=== PATIENT | male | born 1955 | race Caucasian/White ===

== ENCOUNTER 2018-06-10 10:00 | Outpatient (CLI) | payer BC ==
--- NOTE | 2018-06-10 12:23 | RAD ---
5 VIEWS CERVICAL SPINE: Date: 06/10/18 COMPARISON: None. HISTORY: Cervical degenerative disc disease. FINDINGS: There is prominent bilateral severe facet and uncovertebral osteophyte formation, right greater than left, involving the cervical spine at the C3-4, C4-5, C5-6, and C6-7 levels. Open-mouth odontoid view demonstrates a normal appearing dens and C1-2 articulation. Neutral lateral examination demonstrates anterolisthesis at C3-4 measuring 5.0 mm, at C5-6 measuring 7.0 mm. There is prominent disc space narrowing and degenerative end plate change at C6-7. With flexi on imaging, the anterolisthesis at C3-4 measures approximately 7.0 mm, and at C5-6 measures approxima tely 7.0 mm. With extension, the anterolisthesis at C3-4 measures 4.0 mm, and the anterolisthesis at C5-6 measures 5.0 mm. No prevertebral soft tissue swelling. IMPRESSION: Multilevel prominent degenerative change seen within the cervical spine. Multilevel anterolisthesis n oted, most prominent upon flexion. POS: [id number]
== END 2018-06-10 10:01 | disposition home or self-care (01) ==
LOC: TBSIIMAG 10:00
PROVIDERS: ATTEND Surgery
DX: M47.22 Other spondylosis with radiculopathy, cervical region (principal); M50.10 Cervical disc disorder with radiculopathy, unspecified cervical region; M48.02 Spinal stenosis, cervical region; M43.12 Spondylolisthesis, cervical region
CPT/HCPCS: 72050

== ENCOUNTER 2022-08-12 06:24 | Day surgery (SDC) | payer MEDICARE ==
[2022-08-08 11:27] VITALS: BMI 21.9
[2022-08-12 07:17] LABS: #Basophils 0.1 thou/uL (0.0-0.2); #Eosinphils 0.2 thou/uL (0.0-0.7); #Lymphocytes 2.2 thou/uL (1.20-3.40); #Monocytes 0.9 thou/uL (0.11-0.59); #Neutrophils 4.6 thou/uL (1.40-6.50); %Basophils 0.7 % (0.0-1.0); %Eosinophils 2.8 % (0.0-10.0); %Lymphocytes 27.2 % (21.0-51.0); %Monocytes 10.8 % (0.0-10.0); %Neutrophils 58.4 % (42.0-75.0); Hemoglobin 13.8 g/dL (14.0-18.0); Mean Corpuscular HGB CONC 32.9 g/dL (32.0-36.0); Mean Corpuscular Hemoglobin 31.4 pg (27.0-31.0); Mean Corpuscular Volume 95.6 fl (78.0-98.0); Mean Platelet Volume 7.6 fL (7.4-10.4); Platelet Count 267 10x3/uL (130-400); RBC Distribution Width 13.1 % (11.5-14.5); Red Blood Cell (RBC) Count 4.38 mill/uL (4.70-6.10); White Blood Cell (WBC) Count 7.9 10x3/uL (4.8-10.8)
[2022-08-12 07:36] LABS: Anion Gap 13 mmol/L (10-20); BUN (Urea Nitrogen) 21 mg/dL (8.4-25.7); Calc. Creatinine Clearance 99 mL/min (70-130); Calcium 9.8 mg/dL (7.8-10.44); Carbon Dioxide 26 mmol/L (23-31); Chloride 104 mmol/L (98-107); Estimated GFR 99; Glucose 101 mg/dL (80-115); Potassium 4.4 mmol/L (3.5-5.1); Sodium 139 mmol/L (136-145)
[2022-08-12] MEDS ORDERED: Bupivacaine/Epinephrine 0.25% 30 ML VIAL ONE ×2 (08:37→10:04)
[2022-08-12] MEDS ORDERED: fentaNYL PF 100 MCG/2 ML SYRINGE ONE ×2 (08:42→11:40)
[2022-08-12] MEDS ORDERED: SUGAMMADEX SODIUM 200 MG/2 ML VIAL ONE (08:42)
[2022-08-12] MEDS ORDERED: Famotidine/PF 20 mg/2ml Vial ONE (08:43)
[2022-08-12] MEDS ORDERED: Sodium Chloride 0.9% 100 ML ONE (08:54)
[2022-08-12] MEDS ORDERED: CEFAZOLIN 2 GM VIAL ONE (08:54)
[2022-08-12] MEDS ORDERED: Rocuronium Bromide 10 MG/ML (10ML VIAL) ONE (09:05)
[2022-08-12] MEDS ORDERED: Lidocaine 1% PF 5 ML VIAL ONE (09:05)
[2022-08-12] MEDS ORDERED: Metoprolol Tartrate 5 MG/5 ML VIAL ONE (09:05)
[2022-08-12] MEDS ORDERED: Ondansetron PF 4 MG/2 ML Vial ONE (09:05)
[2022-08-12] MEDS ORDERED: Ketorolac Tromethamine 30 MG/ML VIAL ONE (09:05)
[2022-08-12] MEDS ORDERED: PROPOFOL 200 MG/20 ML VIAL ONE (09:05)
[2022-08-12] MEDS ORDERED: Metoclopramide HCl 10 MG/2 ML VIAL ONE (09:05)
[2022-08-12] MEDS ORDERED: ePHEDrine 50 MG/ML VIAL ONE (09:05)
[2022-08-12] MEDS ORDERED: HYDROcodone/Acetaminophen 5/325 mg Tablet ONE (12:23)
== END 2022-08-12 13:40 | disposition home or self-care (01) ==
LOC: SDC 06:24
PROVIDERS: ATTEND Surgery
PROC: 0YUA4JZ Supplement Bilateral Inguinal Region with Synthetic Substitute, Percutaneous Endoscopic Approach (ICD-10-PCS; principal; 2022-08-12)
PROC: 8E0W4CZ Robotic Assisted Procedure of Trunk Region, Percutaneous Endoscopic Approach (ICD-10-PCS; 2022-08-12)
DX: K40.20 Bilateral inguinal hernia, without obstruction or gangrene, not specified as recurrent (principal); I10 Essential (primary) hypertension; E78.5 Hyperlipidemia, unspecified; J44.9 Chronic obstructive pulmonary disease, unspecified; G89.29 Other chronic pain; M54.50 Low back pain, unspecified; M19.90 Unspecified osteoarthritis, unspecified site; F17.210 Nicotine dependence, cigarettes, uncomplicated; Z79.1 Long term (current) use of non-steroidal anti-inflammatories (NSAID); Z79.82 Long term (current) use of aspirin; Z79.899 Other long term (current) drug therapy
CPT/HCPCS: 49650; 80048; 85025; 93005; C1713; 93010; J1885; J2405; J2704; J2765; J3490; S0028